=== PATIENT | female | born 1990 | race Two or more races ===

== ENCOUNTER 2019-03-24 08:08 | Emergency (ER) | payer SELFPAY ==
[2019-03-24 08:35] VITALS: BP 110/74
[2019-03-24] MEDS ORDERED: Lidocaine 1% MPF ** 5 ML VIAL INJ ONE (08:52)
--- NOTE | 2019-03-24 09:32 | UC ---
Skin Complaint HPI - HPI Summary HPI Summary: 28-year-old woman comes in with a chief complaint of swelling and the pain in the left buttock. Patient reports she received some injections for pain on March,, while she was in [facility]. In this location of the swelling and pain. No fevers or chills feels well otherwise. Pain is worse when she puts any weight on it or touches it or she moves. - History of Current Complaint Chief Complaint: UCGeneralIllness Time Seen by Provider: 03/24/19 08:43 Stated Complaint: S/P FALL-LEFT SIDE BUTTOCKS INJURY Hx Last Menstrual Period: 03/21/19 Pain Intensity: 10 - Allergy/Home Medications Allergies/Adverse Reactions: Allergies Allergy/AdvReac Type Severity Reaction Status Date / Time No Known Allergies Allergy Verified 03/24/19 08:35 Home Medications: Home Medications Acetaminophen [Tylenol] 2 tab PO ONCE 03/24/19 [History Confirmed 03/24/19] Multivitamin [Once Daily] 1 tab PO DAILY 03/24/19 [History Confirmed 03/24/19] PMH/Surg Hx/FS Hx/Imm Hx Previously Healthy: Yes - Surgical History Surgical History: None - Family History Known Family History: Positive: Non-Contributory - Social History Alcohol Use: None Substance Use Type: None Smoking Status (MU): Never Smoked Tobacco Review of Systems All Other Systems Reviewed And Are Negative: Yes Constitutional: Positive: Negative Skin: Positive: Other - see hpi Eyes: Positive: Negative ENT: Positive: Negative Respiratory: Positive: Negative Cardiovascular: Positive: Negative Gastrointestinal: Positive: Negative Motor: Positive: Negative Neurovascular: Positive: Negative Musculoskeletal: Positive: Negative Neurological: Positive: Negative Psychological: Positive: Negative Is Patient Immunocompromised?: No Physical Exam Triage Information Reviewed: Yes Appearance: Well-Appearing, Well-Nourished, Pain Distress - with palpation of left buttock Vital Signs: Initial Vital Signs Temp 97 F 03/24/19 08:27 Pulse 98 03/24/19 08:27 Resp 16 03/24/19 08:27 BP 110/74 03/24/19 08:27 Pulse Ox 100 03/24/19 08:27 Vital Signs Reviewed: Yes Eye Exam: Normal Eyes: Positive: Conjunctiva Clear Neck: Positive: Supple Respiratory: Positive: No respiratory distress Musculoskeletal Exam: Normal Musculoskeletal: Positive: Strength Intact, ROM Intact Neurological Exam: Normal Neurological: Positive: Alert, Muscle Tone Normal Psychological Exam: Normal Psychological: Positive: Age Appropriate Behavior Skin: Positive: Other - On the left buttock there is a 15 cm area of swelling consistent with a skin abscess. It is tender to palpation. There is no opening no drainage. Minimal erythema. Procedures - Incision and Drainage Left Buttocks Anesthesia: Local, Lidocaine - 1% Instrument(s): Scalpel Packing: Gauze Course/Dx - Course Course Of Treatment: The incision and drainage drained copious amounts of pus. A culture was taken patient started on Keflex. - Diagnoses Provider Diagnosis: Abscess of buttock, left Discharge - Sign-Out/Discharge Documenting (check all that apply): Patient Departure All imaging exams completed and their final reports reviewed: No Studies - Discharge Plan Condition: Stable Disposition: HOME Prescriptions: Cephalexin CAP* [Keflex CAP*] 500 mg PO QID #40 cap Patient Education Materials: Abscess (ED) Referrals: [facility] [place] [facility] [Outside] Additional Instructions: FOLLOW UP WITH YOUR DOCTOR IF NOT COMPLETELY IMPROVED. GET REEVALUATED SOONER IF WORSE; FEVER, YOU FEEL ILL OR ANY QUESTIONS OR CONCERNS. - Billing Disposition and Condition Condition: STABLE Disposition: Home
== END 2019-03-24 09:43 | disposition home or self-care (01) ==
LOC: UCCORT 08:08
DX: L02.31 Cutaneous abscess of buttock (principal)
CPT/HCPCS: 10060; 87070; 87205; 87640; 87641; 99202; G0463